=== PATIENT | male | born 1960 | race Caucasian/White ===

== ENCOUNTER 2019-07-19 10:00 | Day surgery (SDC) | payer BC ==
[2019-07-18 09:21] VITALS: BMI 37.2
[2019-07-19] MEDS ORDERED: PROPOFOL 20 ML ONE ×2 (12:11→12:48)
--- NOTE | 2019-07-19 13:44 | OP ---
DATE OF PROCEDURE: 07/19/2019 PREPROCEDURE DIAGNOSIS: Atrial fibrillation. POSTPROCEDURE DIAGNOSIS: Sinus rhythm. PROCEDURE PERFORMED: Synchronized cardioversion. DESCRIPTION OF PROCEDURE: The patient was consented for the procedure as an outpatient. He states he has not missed any of his doses of Eliquis. He was recently placed on flecainide 50 mg p.o. b.i.d. Conscious sedation was performed with propofol. FINDINGS: The patient underwent successful synchronized cardioversion, initially at 150, then 200, then 300 joules. IMPRESSION: Successful synchronized cardioversion at 300 joules. ADDENDUM: After note dicted, pt reverted to afib. Recommend increasing flecainide and attempting CV next week. Job ID: [id number] [facility]TDD
== END 2019-07-19 13:42 | disposition home or self-care (01) ==
LOC: CCL 10:00
PROVIDERS: ATTEND Internal Medicine Cardiovascular Disease
PROC: 5A2204Z Restoration of Cardiac Rhythm, Single (ICD-10-PCS; principal; 2019-07-19)
DX: I48.91 Unspecified atrial fibrillation (principal); I10 Essential (primary) hypertension; E78.5 Hyperlipidemia, unspecified; F17.210 Nicotine dependence, cigarettes, uncomplicated; J44.9 Chronic obstructive pulmonary disease, unspecified; G47.33 Obstructive sleep apnea (adult) (pediatric); Z79.01 Long term (current) use of anticoagulants; Z79.899 Other long term (current) drug therapy
CPT/HCPCS: 92960; J2704

== ENCOUNTER → 2019-07-31 | Day surgery (SDC) | payer BC ==
[2019-07-28 10:01] VITALS: BMI 36.6
[~2019-07-31] MED LIST: Atropine Sulfate 1 mg/10 ml Syringe ONE; PROPOFOL 20 ML ONE
--- NOTE | 2019-07-31 13:45 | OP ---
DATE OF PROCEDURE: 07/31/2019 PREPROCEDURE DIAGNOSIS: Atrial fibrillation. POSTPROCEDURE DIAGNOSIS: Sinus rhythm. PROCEDURE PERFORMED: Synchronized cardioversion. DESCRIPTION OF PROCEDURE: The patient was consented for the procedure. The patient increased his flecainide to 100 mg p.o. b.i.d. He was also on appropriate anticoagulation therapy on Xarelto 20 mg q.a.m. He states that he has not missed a single dose over the last 4 weeks. Propofol was used for conscious sedation. The patient underwent synchronized cardioversion at 150, 200, and 250 joules. Successful synchronized cardioversion at 250 joules. IMPRESSION: Successful synchronized cardioversion at 250 joules. Job ID: [id number]
== END ==
LOC: CCL 10:07
PROVIDERS: ATTEND Internal Medicine Cardiovascular Disease
PROC: 5A2204Z Restoration of Cardiac Rhythm, Single (ICD-10-PCS; principal; 2019-07-31)
DX: I48.91 Unspecified atrial fibrillation (principal); Z79.01 Long term (current) use of anticoagulants; Z79.899 Other long term (current) drug therapy
CPT/HCPCS: 92960; J0461; J2704

== ENCOUNTER 2019-09-14 20:30 | Outpatient (CLI) | payer BC | END 2019-09-14 20:31 | disposition home or self-care (01) | LOC: SLEEPLAB 20:30 | PROVIDERS: ATTEND Internal Medicine Critical Care Medicine | DX: G47.33 Obstructive sleep apnea (adult) (pediatric) (principal); R53.83 Other fatigue; J44.9 Chronic obstructive pulmonary disease, unspecified; I10 Essential (primary) hypertension | CPT/HCPCS: 95811 ==

== ENCOUNTER 2020-02-16 05:14 | Outpatient (CLI) | payer BC, OTHER ==
[2020-02-16 13:53] LABS: INR-International Normal Ratio 1.5; Prothrombin Time 18.2 sec (12.0-14.7)
[2020-02-16 13:54] LABS: PTT 38.3 sec (22.9-36.1)
[2020-02-16 13:56] LABS: Hemoglobin 18.7 g/dL (14.0-18.0); Mean Corpuscular HGB CONC 33.7 g/dL (32.0-36.0); Mean Corpuscular Hemoglobin 33.5 pg (27.0-31.0); Mean Corpuscular Volume 99.3 fL (78.0-98.0); Mean Platelet Volume 8.6 fL (7.4-10.4); Platelet Count 167 thou/uL (130-400); RBC Distribution Width 12.3 % (11.5-14.5); Red Blood Cell (RBC) Count 5.57 mill/uL (4.70-6.10); White Blood Cell (WBC) Count 8.9 thou/uL (4.8-10.8)
[2020-02-16 14:07] LABS: Anion Gap 15 mmol/L (10-20); BUN (Urea Nitrogen) 14 mg/dL (8.4-25.7); Calc. Creatinine Clearance 0 mL/min (70-130); Calcium 9.4 mg/dL (7.8-10.44); Carbon Dioxide 25 mmol/L (23-31); Chloride 105 mmol/L (98-107); Estimated GFR-MDRD 74; Glucose 108 mg/dL (80-115); Potassium 4.3 mmol/L (3.5-5.1); Sodium 141 mmol/L (136-145)
[2020-02-17 12:33] LABS: SARS-CoV-2 MS2 Positive; SARS-CoV-2 N Gene Negative; SARS-CoV-2 S Gene Negative; SARS-CoV-2 orf1ab Negative
== END 2020-02-16 05:15 | disposition home or self-care (01) ==
LOC: LABBT 05:14
PROVIDERS: ATTEND Internal Medicine Cardiovascular Disease
DX: Z01.818 Encounter for other preprocedural examination (principal); Z11.59 Encounter for screening for other viral diseases; I48.91 Unspecified atrial fibrillation
CPT/HCPCS: 80048; 85027; 85610; 85730; 87635; 93005; 93010; U0003

== ENCOUNTER 2020-02-21 05:52 | Observation (INO) | payer BC ==
[2020-02-15 13:27] VITALS: BMI 38.5
[2020-02-21] MEDS ORDERED: Fentanyl 100 MCG/2 ML VIAL ONE ×4 (06:55→13:50)
[2020-02-21] MEDS ORDERED: Midazolam HCl 2 mg/2 ml Vial ONE (06:55)
[2020-02-21] MEDS ORDERED: Heparin 10,000 UNITS/1 ML VIAL ONE ×2 (07:30→09:42)
[2020-02-21] MEDS ORDERED: Heparin 25,000 units/D5W 500 ML ONE (07:30)
[2020-02-21] MEDS ORDERED: Isoproterenol 0.2 MG/1 ML AMP ONE (10:04)
[2020-02-21] MEDS ORDERED: Lidocaine 1% PF 5 ML VIAL ONE (10:54)
[2020-02-21] MEDS ORDERED: Glycopyrrolate 0.2 MG/ML 5 ML SYRINGE ONE (10:54)
[2020-02-21] MEDS ORDERED: PROPOFOL 200 MG/20 ML VIAL ONE (10:54)
[2020-02-21] MEDS ORDERED: Ondansetron PF 4 MG/2 ML Vial ONE (10:54)
[2020-02-21] MEDS ORDERED: Rocuronium Bromide 10 MG/ML (10ML VIAL) ONE (10:54)
[2020-02-21] MEDS ORDERED: Dexamethasone 20 MG/5 ML VIAL ONE (10:54)
[2020-02-21] MEDS ORDERED: Vecuronium 10 MG VIAL ONE (10:54)
[2020-02-21] MEDS ORDERED: Protamine Sulfate 50 MG/5 ML VIAL ONE (11:57)
[2020-02-21] MEDS ORDERED: SUGAMMADEX SODIUM 200 MG/2 ML VIAL ONE (12:17)
[2020-02-21] MEDS ORDERED: Promethazine HCl 25 MG/ML VIAL SLOW IVP PRN (12:35)
[2020-02-21] MEDS ORDERED: Promethazine HCl 25 MG/ML VIAL IM PRN (12:35)
[2020-02-21] MEDS ORDERED: Ondansetron HCl/PF 4 MG/2 ML Vial IVP PRN (12:35)
[2020-02-21] MEDS ORDERED: Ketorolac Tromethamine 30 MG/ML VIAL IVP PRN (12:43)
[2020-02-21] MEDS ORDERED: Acetaminophen/Codeine 30-300mg Tablet PO PRN ×2 (12:45)
[2020-02-21] MEDS ORDERED: hydrALAZINE 20 MG/ML VIAL ONE (15:06)
[2020-02-21] MEDS ORDERED: hydrALAZINE 20 MG/ML VIAL SLOW IVP SCH (15:15)
--- NOTE | 2020-02-21 15:39 | OP ---
DATE OF PROCEDURE: 02/21/2020 PROCEDURE PERFORMED: Electrophysiology study and radiofrequency ablation. ADDITIONAL REFERRING PHYSICIAN: Dr. Imtiaz Torres. REASON FOR PROCEDURE: Mr. Mcdaniel is a 60-year-old man with history of persistent atrial fibrillation at least since May 2019 which has been attempted to be cardioverted due to high symptoms. Flecainide therapy was also attempted, but was failed. The remained in atrial fibrillation with significant dyspnea, difficulty rate control. He has been anticoagulated over a month with Xarelto and is here for a pulmonary venous isolation procedure. DESCRIPTION OF PROCEDURE: The patient received general anesthesia by anesthesia specialist. The left and right femoral venous area was prepped, draped, and anesthetized using subcutaneous lidocaine. Under ultrasound guidance, both femoral veins were cannulated. In the left side, an 11-Lao sheath was used to advance an intracardiac echocardiogram probe to the right atrium where it was used to monitor the pericardial space, the catheter manipulation, and the transseptal procedure. Also on the left femoral vein, a Preface sheath was used to advance a Duo-Deca catheter into the right atrium and the CS position. From the right femoral vein , two 8-Lao short sheaths were introduced initially, through which a ThermoCool SFST catheter advanced to the right atrium. 3D map of the right atrium, His bundle, CS positions were all obtained. Baseline intracardiac echo and also fluoroscopy revealed enlarged cardiac silhouette and significant fat pad, and small to moderate pericardial effusion at baseline is present. There is no change throughout the procedure in the cardiac silhouette or the pericardial findings. Following this, IV heparin was started, which was given in a bolus and drip fashion, adjusted periodically to keep ACT over 350. Transseptal procedure was performed , exchanging the right femoral venous sheaths to two SL1 sheaths, which was used to cross the septum with the help of a Syntarga powered needle under ultrasound and fluoroscopic monitoring. Catheters through these sheaths were advanced into the left atrium, a ThermoCool SFST as well as 20-pole Lasso catheter. This catheter was used to obtain a 3D map of the left atrium, then standard pulmonary venous isolation procedure of all four pulmonary veins was obtained. The roof line and inferior line also drawn to isolate the posterior wall successfully. Also further ablations were performed over the CS roof and in the inferior wall with some isolation of the inferior wall as well obtained. The septal areas were also ablated. Hence, the patient remained in atrial fibrillation. At this point, cardioversion was performed, which restored sinus rhythm. The LV pacing was performed with ablation catheter with retrograde Wenckebach cycle length of 280 milliseconds, antegrade Wenckebach cycle length was 250 milliseconds. Isuprel was initiated at this point and any reconnections were re-ablated. Burst atrial pacing of 240 milliseconds did not reinduce atrial arrhythmias. Atrial access to my testing yielded AV ERP less than 600/280 milliseconds. No dual AV node physiology was seen until this level. Throughout the posterior wall fofana, esophageal temperature was adjusted to avoid excessive heating, if any heating in the esophagus noted, extra irrigation was performed at that ablation point through the irrigated ablation catheter with high flow. Finidngs: Heavy scarring noted at baseline with significant bi-atrial enlargement seen. Totql of 39 minute ablation delivered @ 40W. Baseline pericardial effusion and fat pad did not change with ablation. At this point, the catheter was withdrawn from the left atrium and IV heparin was stopped and reversed with protamine. Again, intracardiac echo did not reveal change to pericardial effusion, which was present at baseline. Also, cardiac silhouette did not change significantly. The catheter was removed and the long sheaths were exchanged for short sheaths and Vascade closure was performed in all 4 femoral venous access. CONCLUSION: 1. Successful four vein pulmonary venous isolation. 2. Posterior wall isolated with a roof and inferior wall line. 3. Inferior wall over the CS roof was also isolated. 4. Septal ablation lines were also placed. 5. Heavy scarring noted at baseline with significant bi-atrial enlargement seen 6. No evidence of accessory pathway or dual AV tavares physiology. 7. No additional arrhythmias induced with burst atrial or ventricular pacing. 8. Baseline pericardial effusion and fat pad did not change with ablation. PLAN: Resume oral anticoagulation. Hold antiarrythmic agents on this recurrence. Resume metoprolol for blood pressure control and heart rate control. Routine followup of post ablation patient after that. Job ID: [id number] [facility]
[2020-02-21] MEDS ORDERED: Metoprolol Tartrate 5 MG/5 ML VIAL ONE ×2 (16:34→16:35)
[2020-02-21] MEDS ORDERED: Labetalol HCl 100 MG/20 ML VIAL SLOW IVP PRN (16:51)
[2020-02-21] MEDS ORDERED: Metoprolol Tartrate 25 MG TAB PO SCH (17:00)
[2020-02-21] MEDS ORDERED: Rivaroxaban 10 MG TAB PO SCH (17:00)
[2020-02-21] MEDS: Sucralfate 1 GM TAB PO SCH ×2 (19:24→23:58)
[2020-02-21] MEDS ORDERED: Atorvastatin Calcium 20 MG TAB PO SCH (21:00)
[2020-02-22 03:32] VITALS: TEMP 98.2
[2020-02-22] MEDS: Sucralfate 1 GM TAB PO SCH ×2 (05:34→12:08)
[2020-02-22 08:22] VITALS: BP 146/78
[2020-02-22] MEDS ORDERED: Cholecalciferol 1,000 UNITS (25 MCG) TAB PO SCH (09:00)
[2020-02-22] MEDS ORDERED: Furosemide 40 MG TAB PO SCH (09:00)
[2020-02-22] MEDS ORDERED: Cyanocobalamin (Vitamin B-12) 1,000 MCG TAB PO SCH (09:00)
[2020-02-22] MEDS ORDERED: Allopurinol 300 MG TAB PO SCH (09:00)
[2020-02-22] MEDS ORDERED: Ascorbic Acid 500 mg Chewable Tablet PO SCH (09:00)
--- NOTE | 2020-02-23 13:29 | DIS ---
DATE OF ADMISSION: 02/21/2020 DATE OF DISCHARGE: 02/22/2020 DIAGNOSIS: Atrial fibrillation, persistent. PROCEDURES PERFORMED: Include electrophysiology study and radiofrequency ablation for atrial fibrillation, total ablation time 39 minutes delivered at 40 martin. SUBJECTIVE: Mr. Mcdaniel is a 60-year-old gentleman with a history of persistent atrial fibrillation first documented in May 2019. He was highly symptomatic and cardioversion was attempted first without antiarrhythmic therapy, which failed. Flecainide was initiated and cardioversion was re-attempted, but he had refractory rhythm issues. He opted for pulmonary venous isolation ablation after being adequately anticoagulated with Xarelto for greater than 30 days. He was seen to have heavy scarring at baseline with significant biatrial enlargement. He also had a baseline pericardial effusion and a significant fat pad. This did not change with ablation. He has done well postoperatively maintaining sinus rhythm and he feels well this morning. REVIEW OF SYSTEMS: Eight-point review of systems is negative. OBJECTIVE: VITAL SIGNS: Temperature 98.2, pulse 92, blood pressure 138/79, respirations 18, and oxygen 97% on room air. GENERAL: The patient is alert, oriented. Speech is clear. Affect appropriate. NEUROLOGIC: Grossly intact. Nonfocal. LUNGS: Clear to auscultation bilaterally without crackles or rhonchi, but expiratory wheezes are noted throughout. ABDOMEN: Obese, soft, nontender without palpable masses. EXTREMITIES: Bilateral groin sites are stable without evidence of bleeding or hematoma post venous access. Distal pulses are strong. There is 2+ edema to bilateral lower extremities. No clubbing or cyanosis noted. Gait was stable. DIAGNOSTIC STUDIES: Telemetry and EKG shows sinus rhythm. CONCLUSION: 1. Successful for pulmonary venous isolation. 2. Posterior wall isolation with roof and inferior lines. 3. Inferior wall with the CS roof isolated. 4. Septal ablation lines placed. 5. Heavy scarring noted at baseline with significant biatrial enlargement. 6. No evidence of accessory pathway or dual AV tavares physiology. 7. No additional arrhythmias induced with pacing post ablation. 8. Baseline pericardial effusion and fat pad, which did not change postablation by ICE catheter. PLAN: Resume anticoagulation. Hold antiarrhythmic agents unless early recurrence is seen. Resume metoprolol for blood pressure control and heart rate control. Follow up in 6 weeks. No missed doses of Xarelto for anticoagulation. Contact [facility] with any postablation concerns and follow up in 6 weeks. Light activity for 1 week, then may resume gradually as tolerated and may return to work after 1 week's time. No driving until bilateral groin sites are well healed with no pain. CONDITION AT DISCHARGE: Stable. Job ID: [id number]
== END 2020-02-22 12:25 | disposition home or self-care (01) ==
LOC: CCL 05:52 → 2NO 10:27
PROVIDERS: ADMIT Internal Medicine Cardiovascular Disease; ATTEND Internal Medicine Cardiovascular Disease
PROC: 4A023FZ Measurement of Cardiac Rhythm, Percutaneous Approach (ICD-10-PCS; principal; 2020-02-22)
PROC: 4A0234Z Measurement of Cardiac Electrical Activity, Percutaneous Approach (ICD-10-PCS; 2020-02-22)
PROC: 02583ZZ Destruction of Conduction Mechanism, Percutaneous Approach (ICD-10-PCS; 2020-02-22)
DX: I48.19 Other persistent atrial fibrillation (principal); I10 Essential (primary) hypertension; J44.9 Chronic obstructive pulmonary disease, unspecified; E66.9 Obesity, unspecified; Z68.35 Body mass index [BMI] 35.0-35.9, adult; Z79.01 Long term (current) use of anticoagulants; Z79.899 Other long term (current) drug therapy; Z91.048 Other nonmedicinal substance allergy status
CPT/HCPCS: 76942; 85347; 92960; 93005; 93010; 93613; 93623; 93655; 93656; 93662; C1732; C1759; C1884; G0378; J0360; J1100; J1644; J2250; J2405; J2704; J2720; J3010

== ENCOUNTER 2020-05-10 09:50 | Day surgery (SDC) | payer BC ==
[2020-05-08 13:36] VITALS: BMI 38.5
[2020-05-10] MEDS ORDERED: PROPOFOL 20 ML ONE (11:15)
--- NOTE | 2020-05-12 19:14 | OP ---
DATE OF PROCEDURE: 05/10/2020 PROCEDURE PERFORMED: Electrical cardioversion. ADDITIONAL REFERRING PHYSICIAN: Imtiaz Torres MD REASON FOR PROCEDURE: Mr. Mcdaniel is a 60-year-old man with prior history of paroxysmal atrial fibrillation despite flecainide use and multiple cardioversions. He underwent a pulmonary venous isolation procedure on 02/08/2020 with recurrent atrial flutter noted on 05/05/2020. Flecainide is started a day ago and he has been on uninterrupted Xarelto for anticoagulation, here for cardioversion. DESCRIPTION OF PROCEDURE: The patient received propofol by Anesthesia specialist. After adequate level of sedation achieved, a synchronized joule shock promptly converted the patient back to sinus rhythm. CONCLUSION: Successful cardioversion. PLAN: Continue flecainide and oral anticoagulation. For now, re-evaluate later time. Consider redo ablation if recurrence seen antiarrhythmic agent. Continue Xarelto. Job ID: [id number]
--- NOTE | 2020-05-14 14:15 | EKG ---
Test Reason : POST CARDIOVERSION Blood Pressure : / mmHG Vent. Rate : 058 BPM Atrial Rate : 058 BPM P-R Int : 188 ms QRS Dur : 092 ms QT Int : 478 ms P-R-T Axes : 052 065 059 degrees QTc Int : 469 ms Sinus bradycardia Otherwise normal ECG No previous ECGs available Confirmed by JUMANA MENEZES ([id number]) on 05/14/2020 2:14:51 PM Referred By: DELMAR Confirmed By:JUMANA MENEZES
== END 2020-05-10 12:24 | disposition home or self-care (01) ==
LOC: CCL 09:50
PROVIDERS: ATTEND Internal Medicine Cardiovascular Disease
PROC: 5A2204Z Restoration of Cardiac Rhythm, Single (ICD-10-PCS; principal; 2020-05-10)
DX: I48.19 Other persistent atrial fibrillation (principal); I48.4 Atypical atrial flutter; I10 Essential (primary) hypertension; E78.5 Hyperlipidemia, unspecified; G47.33 Obstructive sleep apnea (adult) (pediatric); F17.210 Nicotine dependence, cigarettes, uncomplicated; J44.9 Chronic obstructive pulmonary disease, unspecified; E66.01 Morbid (severe) obesity due to excess calories; Z68.38 Body mass index [BMI] 38.0-38.9, adult; Z79.01 Long term (current) use of anticoagulants; Z79.899 Other long term (current) drug therapy; Z91.048 Other nonmedicinal substance allergy status
CPT/HCPCS: 92960; 93005; 93010; J2704